=== PATIENT | male | born 1965 | race Caucasian/White ===

== ENCOUNTER 2019-02-03 19:08 | Emergency (ER) | payer BC ==
--- NOTE | 2019-02-03 19:24 | Emergency Department Record ---
History of Present Illness - General Chief complaint: ENT Stated complaint: SORE THROAT Time Seen by Provider: 02/03/19 19:19 Source: Patient Mode of Arrival: Ambulatory Limitations: No limitations - History of Present Illness Initial comments: 53 yo male presents to ED for evaluation of sore throat symptoms for the past 6 weeks. Patient reports improvement with coughing, but reports the continued sensation of "something stuck in my throat". Patient saw his PCP 3 weeks ago for his symptoms, told he had an upper respiratory infection and was nor prescribed any medications. Patient denies fevers, chills, or productive cough symptoms. Patient reports a history of asthma at his baseline. MD complaint: Sore throat Onset/Timin -: Week(s) Location: Throat Severity: Moderate Quality: Aching Consistency: Constant Improves with: Other (Coughing) Worsens with: Other (Talking) Associated Symptoms: Cough - Related Data Home Medications Medication Instructions Recorded Confirmed Last Taken Duloxetine HCl [Cymbalta] 60 mg PO DAILY 02/03/19 02/03/19 Unknown Suvorexant [Belsomra] 10 mg PO QHS 02/03/19 02/03/19 Unknown Previous Rx's Medication Instructions Recorded Azithromycin [Zithromax] 250 mg PO DAILY #4 tab 02/03/19 Prednisone [Prednisone 20Mg] 20 mg PO TID #12 tab 02/03/19 Allergies Allergy/AdvReac Type Severity Reaction Status Date / Time No Known Allergies Allergy Unverified 04/21/16 16:34 Review of Systems Constitutional: Denies: Chills, Fever, Malaise, Night sweats Eyes: Denies: Eye discharge, Eye pain ENT: Reports: Congestion, Throat pain. Denies: Ear pain, Epistaxis Respiratory: Reports: Cough. Denies: Dyspnea Cardiovascular: Denies: Chest pain, Dyspnea on exertion Endocrine: Denies: Fatigue, Heat or cold intolerance Gastrointestinal: Denies: Abdominal pain, Nausea, Vomiting Genitourinary: Denies: Incontinence, Retention Musculoskeletal: Denies: Arthralgia, Back pain, Gout, Joint swelling Skin: Denies: Bruising, Change in color Neurological: Denies: Abnormal gait, Confusion, Headache, Seizure Psychiatric: Denies: Anxiety Hematological/Lymphatic: Denies: Anemia, Blood Clots Physical Exam - General General Appearance: Alert, Oriented x3, Cooperative, Mild distress Limitations: No limitations - Head Head exam: Atraumatic, Normocephalic, Normal inspection Head exam detail: negative: Abrasion, Contusion, Gaines's sign, General tenderness, Hematoma, Laceration - Eye Eye exam: Normal appearance. negative: Conjunctival injection, Periorbital swelling, Periorbital tenderness, Scleral icterus - ENT Ear exam: negative: Auricular hematoma, Auricular trauma Nasal Exam: negative: Active bleeding, Discharge, Dried blood, Foreign body Mouth exam: negative: Drooling, Laceration, Muffled voice, Tongue elevation Throat exam: negative: Tonsillar erythema, Tonsillomegaly, R peritonsillar mass , L peritonsillar mass - Neck Neck exam: Normal inspection. negative: Meningismus, Tenderness - Respiratory Respiratory exam: Normal lung sounds bilaterally. negative: Rales, Respiratory distress, Rhonchi, Stridor - Cardiovascular Cardiovascular Exam: Regular rate, Normal rhythm, Normal heart sounds - GI/Abdominal GI/Abdominal exam: Soft. negative: Rebound, Rigid, Tenderness - Rectal Rectal exam: Deferred - exam: Deferred - Extremities Extremities exam: Normal inspection. negative: Pedal edema, Tenderness - Back Back exam: Denies: CVA tenderness (R), CVA tenderness (L) - Neurological Neurological exam: Alert, Normal gait, Oriented X3 - Psychiatric Psychiatric exam: Normal affect, Normal mood - Skin Skin exam: Normal color. negative: Abrasion Type of lesion: negative: abrasion Course - Reevaluation(s) Reevaluation #1: 02/03/19 20:02 Soft-tissue neck: No acute process Patient was updated on his radiograph results, appears stable for discharge on Prednisone and Zithromax for probable laryngitis. Patient was encouraged to follow-up with his PCP in 3-5 days as for re- evaluation. Disposition Disposition: Discharge Clinical Impression: Laryngitis Disposition: Home, Self-Care Condition: (2) Stable Instructions: Pharyngitis (ED) Additional Instructions: Return to ED if your symptoms worsen or if you have any concerns. Prednisone and Zithromax as directed. Follow-up with your family doctor in 3-5 days as directed. Prescriptions: Azithromycin [Zithromax] 250 mg PO DAILY #4 tab Prednisone [Prednisone 20Mg] 20 mg PO TID #12 tab Forms: Patient Portal Access Time of Disposition: 20:03 Quality - Quality Measures Quality Measures: N/A - Blood Pressure Screening Does Patient Have Any of the Following: No Blood Pressure Classification: Pre-Hypertensive BP Reading Systolic Measurement: 173 Diastolic Measurement: 84 Screening for High Blood Pressure: < Pre-Hypertensive BP, F/U Documented > [ [id number]] Pre-Hypertensive Follow-up Interventions: Referral to alternative/primary care provider.
[2019-02-03] MEDS ORDERED: AZITHROMYCIN 500 MG TABLET PO ONE (20:00)
[2019-02-03] MEDS ORDERED: PREDNISONE 20 MG TAB PO ONE (20:00)
--- NOTE | 2019-02-05 14:30 | RADIOLOGY REPORT ---
EXAM: NECK, SOFT TISSUE HISTORY: LOSS OF VOICE OVER THE LAST SIX WEEKS. SORE THROAT. TECHNIQUE: Two views cervical soft tissues. COMPARISON: None. FINDINGS: The airway is patent. No prevertebral soft tissue swelling. Diffuse arthritic changes are seen in the cervical spine. No abnormal gas collection. No radiopaque foreign body. Epiglottis is unremarkable. IMPRESSION: 1. UNREMARKABLE CERVICAL SOFT TISSUES. 2. ARTHRITIC CHANGES CERVICAL SPINE. JOB NUMBER: [id number] [facility]
== END 2019-02-03 20:15 | disposition home or self-care (01) ==
LOC: ER 19:08
DX: J04.0 Acute laryngitis (principal); J02.9 Acute pharyngitis, unspecified
CPT/HCPCS: 99283 ×2; 70360; J7512